=== PATIENT | female | born 1995 | race Hispanic/Latino ===

== ENCOUNTER 2025-04-26 13:30 | Emergency (ER) | payer OTHER ==
[~2025-04-26] VITALS: Ht 167.6 cm; Wt 81.7 kg
[2025-04-26 13:59] LABS: BASOPHILS 0.5 % (0.1-1.2); EOSINOPHILS 0.9 % (0.7-5.8); LYMPHOCYTES 28.6 % (19.3-51.7); MCH 32.0 PG (25.6-32.2); MCHC 35.0 g/dL (32.2-35.5); MCV 91.5 fL (79.4-94.8); MONOCYTES 7.9 % (4.7-12.5); NEUTROPHILS 61.8 % (34.0-71.1); RBC 4.12 M/uL (3.93-5.22)
[2025-04-26] MEDS ORDERED: SODIUM CHLORIDE 0.9% 1,000 ML IV PRN (14:30)
[2025-04-26 14:37] LABS: ALT (SGPT) 21.0 U/L (14-59); AST (SGOT) 15.0 U/L (15-37); GLOMERULAR FILTRATION RATE,EST 126.0 mL/min (>60); PROTEIN, TOTAL 7.3 g/dL (6.4-8.2); UREA NITROGEN 8.0 mg/dL (7-18)
[2025-04-26 15:04] LABS: BLOOD/HGB, URINE NEGATIVE (Negative); KETONE, URINE NEGATIVE (Negative); LEUK ESTERASE, URINE NEGATIVE (negative); NITRITE, URINE NEGATIVE (negative)
[2025-04-26] MEDS ORDERED: ONDANSETRON ODT4 MG PO (15:20)
[2025-04-26] MEDS ORDERED: MECLIZINE HCL25 MG PO (15:20)
[2025-04-26 15:53] VITALS: BP 117/66
== END 2025-04-26 15:41 | disposition home or self-care (01) ==
LOC: ED 13:30
PROVIDERS: Emergency Medicine
DX: R42 Dizziness and giddiness (principal); Z91.040 Latex allergy status; Z88.0 Allergy status to penicillin
CPT/HCPCS: 36415; 80053; 81003; 83690; 83735; 84702; 85025; 96374; 99284-25; J2405; J7030